=== PATIENT | male | born 1975 | race Caucasian/White ===

== ENCOUNTER → 2016-11-19 | Outpatient (CLI) | payer BC ==
[~2016-11-19] MED LIST: PANTOPRAZOLE SO40 MG PO; PROVENTIL OR V6.7 GM INH; SUDAFED30 MG PO; ZESTRIL2.5 MG PO; [UNRECOGNIZED DRUG - OTHER] PO; [UNRECOGNIZED DRUG - OTHER] PO; [UNRECOGNIZED DRUG - OTHER] PO; [UNRECOGNIZED DRUG - REMARK] PO; [UNRECOGNIZED DRUG - REMARK] PO
--- NOTE | ~2016-11-19 | ECHO ---
Cardiac Stress Test Demographics Patient Name NOLAN REYES Date of Study 11/19/2016 Patient Number [id number] Visit Number [id number] Date of 1975 Room Number Accession Number [id number] Gender Male Age 40 year(s) Referring Tanisha Dumont MD Interpreting Tanisha Dumont MD Physician Magaly Al MD Physician Physician Ordering Physician Tanisha Dumont MD Online Marketing Analyst Supervising James Read APRN Stress Terrestrial Ecologist Ana Ames RVT, MD/P [facility] Nurse Walt Tolliver Procedure Type of Study Cardiac Stress Test:TREADMILL STRESS TEST. Procedure Date Date: 11/19/2016 Start: 12:00 AM Study Location: Echo Lab Indications:Chest discomfort. Patient Status: Routine Conclusions Summary Patient exercised for 14 minutes through 4 stages. The electrocardiographic portion of the stress test was indeterminate for ischemia. Blood pressure response was normal , heart rate response was normal for exertion. The [place] Treadmill score was 9 . This corresponds to a low risk score . Please correlate with clinical symptoms - no symptoms during peak exercise. Stress Protocol Rest ECG Normal sinus rhythm. Pre-Stress Physical Exam Patient assessed by Fanta LEWIS prior to testing. Chest - CTA Cardio - RRR, S1, S2 Stress Peak HR: 196 bpm HR Response: Appropriate Peak BP: 150/82 mmHg BP Response: Appropriate Predicted HR: 182 bpm HR BP Product: 01031 % of predicted HR: 108 Reason for Termination: Target heart rate ECG No significant ST changes with exercise. 1mm of nonspecific ST depression in leads II, III, aVf - differing levels of depression throughout test. Arrhythmias Rare PVC's at peak exercise. Symptoms Calf and leg fatigue. No SOB or Angina. Signature dtt: Tim Garay (cardio) dtd: 11/19/16 0000 Physician Self Edit
== END | disposition disaster alternative care site (69) ==
LOC: GCAR 12:42
DX: R07.89 Other chest pain (principal)